=== PATIENT | male | born 1970 | race American Indian/Alaskan Native ===

== ENCOUNTER 2016-09-22 19:26 | Emergency (ER) | payer OTHER ==
[2016-09-22] MEDS ORDERED: TYLENOL PO ONE (20:04)
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
[2016-09-22] MEDS ORDERED: NORCO 5/325 PO ONE (21:18)
[2016-09-22] MEDS ORDERED: BOOSTRIX IM ONE (21:18)
[2016-09-22] MEDS ORDERED: XYLOCAINE 1%/ EPI 1:100,000 INFILTRATI ONE ×2 (21:27→21:41)
[2016-09-22] MEDS ORDERED: NACL 0.9% 500 ML IR ONE (21:32)
[2016-09-22] MEDS ORDERED: NACL 0.9% IR ONE (21:41)
[2016-09-22] MEDS ORDERED: TRIPLE ANTIBIOTIC TP ONE (22:48)
[2016-09-22] MEDS ORDERED: BACITRACIN (ED) OINT PACKET TP ONE (22:48)
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
[2016-09-22 23:03] VITALS: BP 152/88
== END 2016-09-22 23:05 | disposition home or self-care (01) ==
LOC: ED 19:26
DX: S01.81XA Laceration without foreign body of other part of head, initial encounter (principal); I10 Essential (primary) hypertension; F17.200 Nicotine dependence, unspecified, uncomplicated; W22.8XXA Striking against or struck by other objects, initial encounter; Y93.9 Activity, unspecified; Y92.9 Unspecified place or not applicable; Y99.9 Unspecified external cause status
CPT/HCPCS: 70450; 90471; 90715; A6250

== ENCOUNTER 2016-09-28 17:13 | Emergency (ER) | payer OTHER ==
--- NOTE | 2016-09-28 21:34 | Emergency Department Report ---
Suture/Staple Removal - HPI Chief Complaint: Laceration/Recheck/Suture Stated Complaint: SUTURE REMOVAL Time Seen by Provider: 09/28/16 21:09 When Sutures or Graham Placed: 5-7 Days Ago Wound Location: patient presents for stitches removal in left face placed . ED Review of Systems ROS: Stated complaint: SUTURE REMOVAL Other details as noted in HPI Comment: All other systems reviewed and negative Constitutional: no symptoms reported ENT: denies: epistaxis Respiratory: no symptoms reported Cardiovascular: denies: chest pain, palpitations, dyspnea on exertion, edema, syncope, paroxysmal nocturnal dyspnea Neurological: denies: headache, weakness, numbness, paresthesias, confusion, abnormal gait, vertigo Hematological/Lymphatic: denies: easy bleeding, easy bruising ED Past Medical Hx - Past Medical History Hx Hypertension: Yes - Surgical History Additional Surgical History: Right knee surgery - Social History Smoking Status: Current Every Day Smoker Substance Use Type: None - Medications Home Medications: Home Medications Medication Instructions Recorded Confirmed Last Taken Type Unobtainable 09/28/16 09/28/16 Unknown History Suture Removal Exam - Exam General: Vital signs noted. No distress. Alert and acting appropriately. Wound: Yes Tenderness (minimal), No Pathologic Erythema, No Drainage, No Pus, No Wound Dehiscence (8 stitches intact.) Other Systems: All other systems reviewed and are unremarkable. ED Course Vital Signs 09/28/16 17:35 Temperature 98.2 F Pulse Rate 82 Respiratory 16 Rate Blood Pressure 155/114 O2 Sat by Pulse 100 Oximetry ED Recheck MDM - Differential Diagnosis Wound Recheck, Suture/Staple Removal - Medical Decision Making 46 YOM here for suture removal. Patient is stable. He has a hx of HTN and states he has been off his meds for about a week. States he just got them refilled and would restart them. S/sx of elevated blood pressure discussed. Patient denies such s/sx and doesn't require tx according to ACEP current guidelines. He is aware of the importance of adequate BP control in preventing heart attack and stroke. He is instructed to take his meds and follow up with his PCP for his BP. He verbalized understanding and is agreeable to plan. Critical care attestation.: If time is entered above; I have spent that time in minutes in the direct care of this critically ill patient, excluding procedure time. ED Disposition Clinical Impression: Encounter for removal of sutures Disposition: DISCHARGED TO HOME OR SELFCARE Is pt being admited?: No Does the pt Need Aspirin: No Condition: Stable Instructions: Acute Wound Care (ED) Additional Instructions: Follow instructions for care. Continue medications as previously prescribed. Follow up with your PCP for follow up and immediately for your elevated blood pressure. As not doing so in a timely manner could result in heart attack or stroke. Return to ED as needed. Referrals: PRIMARY CARE, [Primary Care Provider] - 2-3 Days
[2016-09-28 21:50] VITALS: BP 160/111
== END 2016-09-28 21:47 | disposition home or self-care (01) ==
LOC: ED 17:13
DX: Z48.02 Encounter for removal of sutures (principal); I10 Essential (primary) hypertension; F17.200 Nicotine dependence, unspecified, uncomplicated